=== PATIENT | female | born 1985 | race Asian ===

== ENCOUNTER 2017-10-06 00:06 | Emergency (ER) | payer OTHER ==
[2016-02-08 19:40] VITALS: Wt 45.4 kg
[~2017-10-06 00:06] MED LIST: LEVO50TA86 PO; PREN-127 PO
[2017-10-06 00:11] VITALS: BP 126/78
--- NOTE | 2017-10-06 00:18 | ER Report ---
History and Physical Time Seen By MD: 00:11 HPI/ROS CHIEF COMPLAINT: Dislocated jaw HISTORY OF PRESENT ILLNESS: 32-year-old [place] female with a history of previous jaw dislocation 3 or 4 times. Tonight she was yawning on her jaw dislocated. Her significant other attempted reduce it. They were unsuccessful. Patient notes mild 4/10 pain at the site. She is having trouble speaking and closing her mouth. REVIEW OF SYSTEMS: Respiratory: No cough, no dyspnea. Cardiovascular: No chest pain, no palpitations. Gastrointestinal: No vomiting, no abdominal pain. Musculoskeletal: No back pain. Allergies: Coded Allergies: No Known Drug Allergies (Verified , 10/10/15) Home Meds Reported Medications Levothyroxine Sodium (LEVOTHYROXINE SODIUM) 50 Mcg Tablet, 50 MCG PO QDAY, TAB 02/08/16 Vits W-Ca,Fe,Fa(<1MG) ( VITAMINS) 1 Each Tablet, 1 EACH PO DAILY, TAB 08/19/15 Reviewed Nurses Notes: Yes Old Medical Records Reviewed: Yes Hx Smoking: No Smoking Status: Never Smoker Exposure to Second Hand Smoke?: No Constitutional Vital Sign - Last 24 Hours 10/06/17 00:11 Temp 97.9 Pulse 68 Resp 24 B/P (MAP) 126/78 Pulse Ox 95 O2 Delivery Room Air Physical Exam General Appearance: The patient is alert, has no immediate need for airway protection and no current signs of toxicity. Vital signs stable, afebrile HEENT: Pupils equal and round no injection. TMs normal, TMJs tender, patient's mouth is opened. She is unable to close it since her jaws dislocated. She is unable to speak clearly. Respiratory: Chest is non tender, lungs are clear to auscultation. Cardiac: regular rate and rhythm Gastrointestinal: Abdomen is soft and non tender, no masses, bowel sounds normal. Musculoskeletal: Neck: Neck is supple and non tender. No lymphadenopathy Extremities have full range of motion and are non tender. Skin: No rashes or lesions. DIFFERENTIAL DIAGNOSIS: After history and physical exam differential diagnosis was considered for jaw dislocation, Medical Decision Making ED Course/Re-evaluation ED Course Patient was admitted to an examination room. H&P was done. The differential diagnoses was considered. She with obvious dislocated jaw. Patient's jaw was relocated with traction on the posterior molars and angulation up and into the mandibular socket. There was immediate release. Patient has normal range of motion. Patient was advised to follow-up with oralmaxial facial surgery for evaluation. Procedure: Dislocation reduction. The mandible was reduced in the usual fashion without complications. Post reduction the patient's neurovascular exam is normal. Post reduction. Patient has normal range of motion of her jaw noted The procedure was performed by myself. Decision to Disposition Date: Oct 06, 2017 Decision to Disposition Time: 00:16 Depart Departure Latest Vital Signs Vital Signs Date Time Temp Pulse Resp B/P (MAP) Pulse Ox O2 Delivery O2 Flow Rate FiO2 10/06/17 00:11 97.9 68 24 126/78 95 Room Air Impression: Primary Impression: Dislocated jaw Condition: Improved Disposition: HOME OR SELF-CARE Referrals: GERDA NOGUEIRA DO (PCP) Patient Instructions: Mandibular Dislocation (ED) Problem Qualifiers Primary Impression: Dislocated jaw Encounter type: initial encounter Qualified Codes: S03.00XA - Dislocation of jaw, unspecified side, initial encounter ARMANI PAYNE DO Oct 06, 2017 00:18
== END 2017-10-06 00:25 | disposition home or self-care (01) ==
LOC: ER 00:25
DX: S03.00XA Dislocation of jaw, unspecified side, initial encounter (principal)
CPT/HCPCS: 99282